=== PATIENT | female | born 1985 | race Caucasian/White ===

== ENCOUNTER 2017-02-11 07:55 | Emergency (ER) | payer MEDICAID ==
[~2017-02-11] VITALS: Ht 162.6 cm; Wt 94.8 kg
[2017-02-11 08:03] VITALS: BP 155/90
[2017-02-11] MEDS ORDERED: HALOPERIDOL LACTATE INJ 5 MG/ML VIAL ONE (08:13)
--- NOTE | 2017-02-11 08:20 | NUR ---
Patient placed on the monitor.
--- NOTE | 2017-02-11 08:23 | NUR ---
[id number] FROM HOME: BEHAVIORAL, FAMILY UNABLE TO MANAGE. PATIENT RECIEVED AWAKE, SCREAMING AND YELLING FOR NO APPARENT REASON. AFEBRILE. VSS. EKRANJAN AT BEDSIDE
[2017-02-11] MEDS ORDERED: LORAZEPAM INJ 2 MG/ML VIAL ONE (08:28)
[2017-02-11] MEDS ORDERED: HALOPERIDOL LACTATE INJ 5 MG/ML VIAL IM ONE (08:30)
[2017-02-11] MEDS ORDERED: LORAZEPAM INJ 2 MG/ML VIAL IM ONE (08:30)
== END 2017-02-11 10:25 | disposition home or self-care (01) ==
LOC: ER 07:57
DX: F91.8 Other conduct disorders (principal); R45.1 Restlessness and agitation
CPT/HCPCS: 96372 ×2; 99291; A4606; J1630; J2060; Z7610